=== PATIENT | female | born 1965 | race Caucasian/White ===

== ENCOUNTER 2024-05-03 10:13 | Outpatient (CLI) | payer OTHER, SELFPAY | END 2024-05-03 10:14 | disposition home or self-care (01) | PROVIDERS: PCP Nurse Practitioner Family; Visit Provider Nurse Practitioner Family | DX: R42 Dizziness and giddiness (principal); Z13.6 Encounter for screening for cardiovascular disorders; Z13.29 Encounter for screening for other suspected endocrine disorder | CPT/HCPCS: 80053; 80061; 84443; 85025 ==